=== PATIENT | male | born 1930 | race Caucasian/White ===

== ENCOUNTER 2016-12-21 11:19 | Emergency (ER) | payer OTHER ==
[~2016-12-21] VITALS: Ht 180.3 cm; Wt 101.6 kg
[~2016-12-21 11:19] MED LIST: ALLOPURINOL 30300 M2 PO; ALLOPURINOL PO; APAP/CODEINE ELI5 M1 OR; AVELOX 400 MG400 MG PO; BIAXIN500 MG PO; DOXYCYCLINE 10100 MG PO; FELODIPINE 5 MG5 M1 PO; GLIPIZIDE 10 MG10 MG PO; GLYBURIDE 5 MG T5 M1 PO; HYDREA PO; HYDROCHLOROTH12.5 M1 PO; HYDROCORTISONE3011 TP; JAKAFI5 MG PO; KEFLEX500 MG PO; LASIX 20 MG TAB20 MG PO; LEVAQUIN 500 M500 MG PO; LIPITOR 20 MG T20 M1 PO; LISINOPRIL PO; OSELB75 PO; TOPROL XL25 MG PO; ULTRAM 50MG TAB50 MG PO; ZOCOR PO; ZOLOFT50 M1 PO; ZOLOFT50 MG PO
[2016-12-21 12:52] LABS: HEMATOCRIT 38.9 % (42.0-52.0); HEMOGLOBIN 12.5 gm/dL (14.0-18.0); MCH 31.1 pg (26.0-34.0); MCHC 32.1 g/dL (28.0-37.0); MCV 96.9 fL (80.0-100.0); PLATELET COUNT 149 thou/uL (150-400); RBC 4.01 mil/uL (4.50-6.00); RDW 18.4 % (10.5-14.5); WBC 17.5 thou/uL (4.0-11.0)
[2016-12-21 13:00] LABS: MANUAL DIFF YES
[2016-12-21 13:03] LABS: CALCIUM 8.9 mg/dL (8.5-10.1); POTASSIUM 4.5 mmol/L (3.5-5.1)
[2016-12-21 13:24] LABS: ABSOLUTE NEUTROPHILS 15.2 thou/uL (1.4-8.2); METAMYELOCYTES 1 %; TOTAL CELL COUNT 100
[2016-12-21 13:25] LABS: POIKILOCYTOSIS 1+; POLYCHROMASIA OCCASIONAL
[2016-12-21 13:26] LABS: ANISOCYTOSIS 2+
[2016-12-21] MEDS ORDERED: NORCO 5-325 TA1 EACH PO (13:58)
[2016-12-21] MEDS ORDERED: IBUPROFEN 600600 M1 PO (13:58)
== END 2016-12-21 14:11 | disposition home or self-care (01) ==
LOC: ER 11:19
PROVIDERS: Emergency Medicine
DX: R51 Headache (principal); Z95.1 Presence of aortocoronary bypass graft; E11.22 Type 2 diabetes mellitus with diabetic chronic kidney disease; I13.10 Hypertensive heart and chronic kidney disease without heart failure, with stage 1 through stage 4 chronic kidney disease, or unspecified chronic kidney disease; N18.3 Chronic kidney disease, stage 3 (moderate); Z86.79 Personal history of other diseases of the circulatory system; Z85.46 Personal history of malignant neoplasm of prostate; E78.00 Pure hypercholesterolemia, unspecified; E03.9 Hypothyroidism, unspecified; Z98.890 Other specified postprocedural states; M10.9 Gout, unspecified; Z88.0 Allergy status to penicillin; F10.99 Alcohol use, unspecified with unspecified alcohol-induced disorder

== ENCOUNTER → 2017-01-07 | Outpatient (CLI) | payer OTHER ==
[~2017-01-07] MED LIST changes: +IBUPROFEN 600600 M1 PO; +NORCO 5-325 TA1 EACH PO
== END ==
LOC: ULTRA 03:44
DX: D75.81 Myelofibrosis (principal); R16.1 Splenomegaly, not elsewhere classified

== ENCOUNTER 2017-05-10 17:45 | Inpatient (IN) | payer OTHER ==
[~2017-05-10] VITALS: Ht 180.3 cm; Wt 94.3 kg
--- NOTE | ~2017-05-10 | CNG ---
[facility] [place] [address] CYTO-NONGYN REPORT PROCEDURE Name: TIAN PASTRANA Room #: 457-P [facility] IN M.R.#: [id number] Admission: 05/10/17 Date of : 32 Discharge: 05/13/17 Report #: [id number] Path Case #: [id number] CYTOPATHOLOGY REPORT COLLECTION DATE: 05/12/2017 RECEIVED DATE: 05/13/2017 SUBMITTING PHYS: Dr. Ariella Gambino OTHER PHYS: Dr. Rosales Martinez CLINICAL HISTORY: Low blood sugar. SPECIMEN(S) RECEIVED: A.Abdominal fluid * * * * * * * * * * * * FINAL DIAGNOSIS: A. Abdominal fluid: - No malignant cells identified. Rare mesothelial cells and scattered inflammatory cells. PATHOLOGIST: Crystal Ko M.D. REPORT ELECTRONICALLY SIGNED BY: Crystal Ko M.D. DATE/TIME: 05/14/2017 12:46 * * * * * * * * * * * * GROSS PATHOLOGY: A. Abdominal fluid: The specimen is submitted unfixed, labeled "Tian Pastrana". Received by the Cytology Department is 15 mL of clear opaque fluid. One ThinPrep slide and a formalin fixed cell block were prepared. (clt 05.13.2017) EQUIPMENT STERILIZER(S): [facility]AD [facility] INITIAL CPT CODE(S): A; 13064, 53739 Professional services performed by [facility] at [facility] [address], [place] [address] Technical services performed by [facility] at [address] [place] [address], [address], [place] [address]. [facility] [address] [place] [address], [facility] [[email or web address]] [address] [place], [place] [address] [place] [address] [place] [address] CYTO-NONGYN REPORT PROCEDURE Name: JASONTIANJOSE ROBERTO TAYLOR Room #: 457-P DIS IN M.R.#: [id number] Admission: 05/10/17 Date of : 31 Discharge: 05/13/17 Report #: [id number] Path Case #: [id number] PHONE: [phone] DIRECTOR: Bi Espinoza M.D. * * * END OF REPORT * * *
--- NOTE | ~2017-05-10 | H ---
[facility] [place] [address] HISTORY AND PHYSICAL Name: ALISIA GOMEZ Room #: 457-P [facility] IN M.R.#: [id number] Admission: 05/10/17 Attend Phys: Ariella Conroy MD Discharge: 05/13/17 Date of : 31 Report #: [id number] THIS REPORT FOR: //name// CC: Jesus Manuel Conroy DATE OF SERVICE: 05/10/2017 ATTENDING PHYSICIAN: Ariella Conroy M.D. CHIEF COMPLAINT: Low blood sugar and confusion. HISTORY OF PRESENT ILLNESS: The patient is an 86-year-old gentleman with known history of polycythemia with myelofibrosis. The patient has been having intermittent rectal bleeding as per the son for the last 6 months or so. He did complain of having some bleeding early this week around Thursday, Thursday. The son who is at the bedside also noticed some confusion this morning more than usual. He reports that when he saw his dad 2 weeks ago, he did not have a distended abdomen. He did not complain of any abdominal pain. The patient was initially confused when his blood sugar was running low around 24. After giving him D50 sedation, he was able to be more clear and let me know that he feels fine and he has had abdominal distention for the last couple of weeks. He does complain of having rectal bleeding. He denies of any abdominal pain. He does know that he has been on medicines for his myelofibrosis. 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 PAST SURGICAL HISTORY: Appendectomy, prostate surgery, transaortic valve replacement, right carotid endarterectomy and coronary triple bypass surgery. ALLERGIES: He is known to be ALLERGIC TO PENICILLIN. MEDICATIONS: He was currently on ibuprofen, hydrocodone p.r.n., ruxolitinib 5 mg p.o. daily, glipizide 10 mg daily, Plendil 5 mg daily, metoprolol 25 mg at bedtime, sertraline 50 mg daily, allopurinol 300 mg daily and atorvastatin 20 mg daily. SOCIAL HISTORY: He was a smoker in the past. He drinks alcohol regularly. REVIEW OF SYSTEMS: The patient after was given D50 was able to say that he had [address] [address] HISTORY AND PHYSICAL Name: ALISIA GOMEZ CLAUDIA Room #: 457-P [facility] IN M.R.#: [id number] Admission: 05/10/17 Attend Phys: Ariella Conroy MD Discharge: 05/13/17 Date of : 31 Report #: [id number] abdominal distention and did not complain of any abdominal pain, fever and did not report any nausea and he reports that he did drink alcohol yesterday. PHYSICAL EXAMINATION: GENERAL: Elderly gentleman who was resting in bed. As noted, he was confused initially, but after giving D50 he was able to relate well and was oriented to place and person VITAL SIGNS: He was afebrile with pulse of 98 per minute and regular, respiratory rate of 16, blood pressure was 156/70. HEENT: Skull was atraumatic. There was no pallor, no icterus. Mucosa was moist. NECK: Supple. LUNGS: Clear to auscultation bilaterally with no wheezing or crackles. HEART: First and second, normal. ABDOMEN: There was diffuse distention and the patient had severe splenomegaly, extending beyond the midline. There was hepatomegaly and free fluid was palpated in the abdomen and bowel sounds were normally heard. EXTREMITIES: The patient had trace edema in both lower extremities. RECTAL: As per the ER no external hemorrhoids. No signs of fissures and no masses were seen or palpated. There was brown stool and stools were Hemoccult positive and a small amount of blood was noted on the fingertip. LABORATORY DATA: On admission showed a sodium 143, potassium 4.2, chloride 111, bicarbonate of 25, BUN was 44, creatinine of 1.7, glucose was 56 on admission. Lactic acid was 0.7. AST was 65, ALT of 45, alkaline phosphatase of 177, white cell count was 17.2, hemoglobin 11.2, hematocrit 33.9 and a platelet count of 199. CT abdomen showed markedly enlarged liver. There were gallstones and there was some ascites present in the lower quadrants. ASSESSMENT: 1. Rectal bleeding. 2. Ascites. 3. Hypoglycemia. 4. Alcoholism. 5. Non-insulin dependent diabetes mellitus. 6. Hypertension. 7. Chronic kidney disease, stage 3. 8. History of polycythemia, with converted to myelofibrosis. PLAN: To continue his medications. We will discontinue the atorvastatin, ibuprofen allopurinol for right now. The patient is n.p.o. and have a GI consultation, followup for lower endoscopy. Monitor his hemoglobin. We will also have a consultation with Hematology/Oncology regarding his myelofibrosis and monitor his blood sugars closely. We will discontinue the glipizide for right now and monitor his blood sugars closely. Discussed with the patient and he requested to be a full code and family is aware of it. I discussed overall [facility] [address] [place] [address] HISTORY AND PHYSICAL Name: ALISIA GOMEZ CLAUDIA Room #: 457-P [facility] IN M.R.#: [id number] Admission: 05/10/17 Attend Phys: Ariella Conroy MD Discharge: 05/13/17 Date of : 31 Report #: [id number] prognosis and his medical condition with his son and daughter who were present at the bedside. <ELECTRONICALLY SIGNED> By: Ariella Conroy MD 05/21/17 1412 0926 1023 Ariella Conroy MD /nt
--- NOTE | ~2017-05-10 | HC ---
[facility] [place] [address] CONSULTATION Name: ALISIA GOMEZ Room #: 457-P ADM IN M.R.#: [id number] Admission: 05/10/17 Attend Phys: Ariella Conroy MD Discharge: Date of : 31 Report #: [id number] THIS REPORT FOR: //name// CC: Jesus Manuel Conroy MD REQUESTING PHYSICIAN: Ariella Conroy M.D. 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 Evidently, his female friend had noticed that he was having troubles with confusion and has noticed that his sugars were high and low with lows down to 40 and 28. He was brought by emergency medical services at [place]. He also admits to drinking a lot alcohol, which sounds like 2 very large martinis a day. He also several days ago had noticed bright red blood per rectum, he said about maybe half a cup's worth. This has happened before. He does have a history of gastric varices and was scheduled to see GI over at , I think, tomorrow. At this time, he denies headache, fevers or chills. His eyes are okay now. No nausea or vomiting, no abdominal pain. He has had some leg swelling in the past. He has not had anymore bleeding since several days ago. He ____ that daughter and son are present in the room. 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 The patient's family reports that he has been ____ for about 12 months. They thought it had been beneficial. As far as his spleen going down in size, he has no longer talked with abdominal pain. He does feel like perhaps his abdomen has been slightly more obese than usual lately, having ____, but he is not the best historian. He has not had any skin rash. He has not had any new breathing troubles. No new arm or leg swelling. PAST MEDICAL HISTORY: Notable for the myelofibrosis, also a history of coronary artery disease with, I think, stents and maybe CABG in the past. Also cerebral stroke, hypertension and lipid abnormalities. Note that triple bypass was in 2005. Also the diabetes. Also history of prostate cancer, stage 3 chronic kidney disease, right carotid endarterectomy, hypothyroidism, gout, erectile dysfunction, incontinence, aortic stenosis with a transaortic valve replacement on 03/07/2016. Also appendectomy in the past. MEDICATIONS AT HOME: Had included bupropion and hydrocodone. He had been on ruxolitinib, which has been held. Also glipizide, felodipine, metoprolol, [facility] [address] [place] [address] CONSULTATION Name: ALISIA GOMEZ Room #: 457-P [facility] IN M.R.#: [id number] Admission: 05/10/17 Attend Phys: Ariella Conroy MD Discharge: Date of : 31 Report #: [id number] Zoloft, allopurinol and atorvastatin, all of those have been held at this time except ibuprofen and hydrocodone, we will need to check his medications. CURRENT MEDICATIONS I BELIEVE IN THE HOSPITAL CURRENTLY: Include amlodipine 5, metoprolol 50, Zofran p.r.n., furosemide 20. He also received a dose of levofloxacin and pantoprazole in the ER ____. 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 Stopped smoking some 50 years ago. Alcohol, 2 very large martinis daily, no street drugs. FAMILY HISTORY: Father had an PA at age 67 ____ both about age 4. He has 3 brothers and 4 sisters. There is some diabetes in his family. He has a son and a daughter. 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 ALLERGIES: PENICILLIN. PHYSICAL EXAMINATION: GENERAL: The patient appears his stated age. VITAL SIGNS: Height is 5 feet 11 inches, which is 180.3 cm. Weight is 200 pounds, which is 90.9 kilograms. Blood pressure is 177/78, O2 sat 91%, respirations 18, pulse 71, temperature afebrile at 97.5. HEENT: Face is symmetric. LUNGS: Clear. CARDIOVASCULAR: Heart appears regular rate. ABDOMEN: Quite obese. I believe there is a spleen palpable. EXTREMITIES: Without clubbing or cyanosis. There is some trace edema. LABORATORY: Here shows a BUN of 44, creatinine of 1.7, AST elevated at 65, total bili normal at 0.5, alkaline phosphatase elevated at 177, ALT normal at 45, albumin 3.4 from yesterday evening, ammonia 29, lactic acid 0.7. Coags are ordered and are normal. White count 16.4, hemoglobin 11.2, MCV 96.6, RDW 18.1. Platelet count 208. Differential appears normal. Note that there were 2 metamyelocytes, 1 myelocyte mentioned and 1 NRBC. Urinalysis shows 0-2 red cells. RADIOLOGIC STUDIES: The patient had CT of abdomen and pelvis done on May 10. This was compared to 11/01/2010 as well as 01/24/2016. The CT study shows progressive enlargement of the spleen, ____ the left upper quadrant, and significantly larger than his liver. There is [id number] grade ascites throughout the abdomen. The spleen is increased from 15.5 cm in October 2010 up to 21.5 in January 2016 and 23.4 cm today. Progressive thickening of the spleen measures 11.5. ASSESSMENT AND PLAN: 1. Myelofibrosis and polycythemia vera, question about whether ruxolitinib is [facility] [address] [place] [address] CONSULTATION Name: ALISIA GOMEZ CLAUDIA Room #: 457-P [facility] IN .R.#: [id number] Admission: 05/10/17 Attend Phys: Ariella Conroy MD Discharge: Date of : 31 Report #: [id number] still working with reported increased size of spleen. We will hold ruxolitinib while he is here in the hospital. We talked with Dr. House, and she wishes him to continue it as an outpatient. 2. Gastrointestinal bleeding. Reportedly, the patient has history of varices, which would be related to portal hypertension. GI yet to see the patient. Await GI evaluation. 3. Abdominal ascites. It would again be worrisome for portal hypertension. We will defer to GI whether paracentesis should be obtained. 4. Coronary artery disease and hypertension, currently back on metoprolol. 5. Diabetes. Low sugars are very worrisome, whether the patient may be having severe liver malfunction, though albumin and total bili are normal. We will await coags as another way to ascertain synthetic function of the liver. The patient's family is aware of this concern. 6. Gout. We will probably be holding allopurinol. 7. Hyperlipidemia. Either restart or hold atorvastatin. 8. History of prostate cancer, status unknown. 9. Gouty arthritis, not currently acting up. 10. Alcohol misuse. We will defer to others. <ELECTRONICALLY SIGNED> By: Claudio Mckay MD 05/12/17 0754 1015 [id number] Claudio Mckay MD /nt
--- NOTE | ~2017-05-10 | D ---
[facility] [place] [address] DISCHARGE SUMMARY Name: ALISIA GOMEZ Room #: 457-P [facility] IN M.R.#: [id number] Admission: 05/10/17 Attend Phys: Ariella Conroy MD Discharge: 05/13/17 Date of : 31 Report #: [id number] THIS REPORT FOR: //name// CC: Jesus Manuel Conroy DATE OF SERVICE: 05/13/2017 FINAL DIAGNOSES: 1. Abdominal ascites. 2. Splenomegaly. 3. Diabetes type 2. 4. Chronic kidney disease, stage 4. 5. Polycythemia vera. 6. Myelofibrosis. 7. Liver disease. HOSPITAL COURSE: The patient was admitted with weakness and altered mental status and he was found to be hypoglycemic at the scene. His oral agents were discontinued. He was treated symptomatically. He was also found to have significant splenomegaly due to his known polycythemia vera and myelofibrosis. Abdominal ascites was noted as well. He underwent paracentesis removing [address] Wild saw him and added diuretics. Dr. Mckay saw him and, at this point, kept him off his oral agent for myelofibrosis with recommendation to follow up his coper hand. PHYSICAL EXAMINATION: GENERAL: On the day of discharge, he was awake and alert. VITAL SIGNS: Stable. LUNGS: Clear. HEART: Regular. ABDOMEN: Soft, normoactive bowel sounds. EXTREMITIES: No edema. DISPOSITION: To be discharged to home with diabetic diet, activity as tolerated, stop Glucotrol, add Lasix 20 mg, Aldactone 25 mg and his metoprolol, Norvasc. Follow up with me in 2 days for lab work. <ELECTRONICALLY SIGNED> By: Jesus Manuel Martinez MD 05/19/17 0923 1218 1254 Jesus Manuel Martinez MD /nt
--- NOTE | ~2017-05-10 | EKG ---
[address] [address] ELECTROCARDIOGRAM REPORT Name: ALISIA GOMEZ Room #: 457- ADM IN M.R.#: [id number] Admission: 05/10/17 Attend Phys: Ariella Conroy MD Discharge: Date of : 31 Report #: [id number] THIS REPORT FOR: //name// [facility] ED Test Date: 2017-05-10 Test Time: 17:48:06 Pat Name: ALISIA GOMEZ Department: Room: 457 Gender: M [employer]or: MZOOK : 1930 Requested By: Yousif Krishna Order Number: [id number] MD: Rosendo Padron Measurements Intervals [place] Rate: 70 P: 54 CA: 180 QRS: -13 QRSD: 129 T: 52 QT: 452 QTc: 488 Interpretive Statements Sinus rhythm Probable left atrial enlargement Nonspecific intraventricular conduction delay Inferior infarct, old Compared to ECG 01/12/2016 21:27:57 Ventricular premature complex(es) no longer present early R-wave progression is now present Electronically Signed On 05-12-2017 8:15:25 CDT by Rosendo Padron [email or web address] <ELECTRONICALLY SIGNED> By: Rosendo Padron MD, [facility] 05/12/17 0815 1748 1748 Rosendo Padron MD, [facility] /EPI
--- NOTE | ~2017-05-10 | HC ---
[facility] [place] [address] CONSULTATION Name: ALISIA GOMEZ Room #: 457-P ADM IN M.R.#: [id number] Admission: 05/10/17 Attend Phys: Ariella Conroy MD Discharge: Date of : 31 Report #: [id number] THIS REPORT FOR: //name// CC: Jesus Manuel Conroy DATE OF SERVICE: 05/11/2017 REASON FOR CONSULTATION: The patient is an 86-year-old male with history of cirrhosis of liver and polycythemia vera with progressive splenomegaly and generalized weakness and confusion. HISTORY OF PRESENT ILLNESS: This 86-year-old male has a history of above mentioned problems. Yesterday, his friend noted that he was very weak, somewhat lethargic and confused and brought him to [facility] Emergency Room. When he evaluated by EMS, they found he had a blood sugar of 43, and he was given D10 en route to the hospital. He is currently undergoing management for those problems. He has been on oral agents and blood sugar this morning was 38. From a GI standpoint, he does have a history of liver disease. He has a history of heavy alcohol consumption. He likes to drink gin martinis. He reports only 1 or 2 a day and sometimes 3; however, his daughter who is present in the room reports that he fills a highball glass with his martinis and does not drink out of a typical martini glass. The patient has had gastrointestinal bleeding in the past. It sounds like he has been evaluated at . I am told that he did have some black stools in the past. He also had what sounds like banding of esophageal varices, possibly 6 months ago; however, the date is not entirely clear. It is noted that he was scheduled as an outpatient to have reexamination tomorrow. Obviously, that outpatient procedure is not going to happen at this point. He reports he has not had any recent bloody stools or black stools. He reports that his mentation has been good, although he is forgetful. In recent weeks, he has had progressive distension of his abdomen, that is a new problem as well. He has not had a previous paracentesis. Also, there is no family history of liver disease. He has not been known to have jaundice or viral hepatitis. PAST MEDICAL HISTORY: He had bypass surgery in 2005. He has also been treated for congestive heart failure. In addition, he had aortic stenosis and had a repair done by cardiac catheterization at [facility] [place]. He does have [id number] diabetes mellitus. He has stage 3 chronic kidney disease. He has had prostate cancer treated with seed implants, he did not have surgery. [facility] [address] [place] [address] CONSULTATION Name: ALISIA GOMEZ CLAUDIA Room #: 457-P [facility] IN M.R.#: [id number] Admission: 05/10/17 Attend Phys: Ariella Conroy MD Discharge: Date of : 31 Report #: [id number] He had a stroke in the past. He subsequently had a right carotid endarterectomy. He reports he has recovered well from the stroke. He uses a cane, but that is not necessarily due to hemiparesis. He has elevated cholesterol. He has also had hypothyroidism. 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 He has had gouty arthritis, cataract surgery, erectile dysfunction. He has had some urinary incontinence as well. In addition, he has had an appendectomy and prostate surgery. He has recently had problems with diarrhea. It sounds as if he has had that managed with bile-binding agents. Depression. MEDICATIONS: Listed as ibuprofen, but the patient tells me he takes Aleve as needed for chronic back pain. He also uses Buford from time to time, not on a daily basis. He uses Jakafi 5 mg daily for his polycythemia and myelofibrosis. In addition, he takes Glucotrol 10 mg daily, Plendil 5 mg daily, metoprolol 25 mg daily, sertraline 50 mg at bedtime, allopurinol 300 mg at bedtime and atorvastatin 20 mg at bedtime. ALLERGIES: PENICILLIN. FAMILY HISTORY: No family history of liver disease, jaundice, hepatitis or colon cancer. SOCIAL HISTORY: He smoked in the past including many years ago. Alcohol history as described above. He has never used recreational drugs. GASTROINTESTINAL HISTORY: He has had a colonoscopy in the past, it was in recent years. He does not recall results. REVIEW OF SYSTEMS: GENERAL: He has had increasing abdominal girth in recent weeks and does increase in weight. He has not had any fever or chills. He has had recent generalized weakness. CENTRAL NERVOUS SYSTEM: Previous CVA without recent symptoms of weakness or numbness. ENT: Wears glass and hearing aids. PULMONARY: No cough, pneumonia or tuberculosis. He is a former cigarette smoker. CARDIOVASCULAR: Previous bypass surgery, aortic valve intervention. No recent chest pain or chest tightness. He has been treated for congestive heart failure. GASTROINTESTINAL: No nausea, vomiting or hematemesis. He has had black stools in the past, but not recently. He has had previous colonoscopy. GENITOURINARY: Some urinary incontinence, prostate cancer. MUSCULOSKELETAL: Reports back pain. SKIN: Without rashes. ENDOCRINE: Diabetes and hypothyroidism. [facility] [address] [place] [address] CONSULTATION Name: ALISIA GOMEZ Room #: 457-P [facility] IN M.R.#: [id number] Admission: 05/10/17 Attend Phys: Ariella Conroy MD Discharge: Date of : 31 Report #: [id number] HEMATOLOGIC: Polycythemia, myelofibrosis and prostate cancer. PHYSICAL EXAMINATION: NEUROLOGIC: The patient is a well-developed, well-nourished male who is awake, alert and oriented, in no acute distress. He answers questions appropriately and promptly. VITAL SIGNS: Blood pressure 177/78, pulse of 71. HEENT: Anicteric. Pupils equal and round. Oropharynx is clear. NECK: Supple. CHEST: Clear. HEART: Regular rate and rhythm. S1, S2, soft murmur. ABDOMEN: Protuberant. It is firm, but is not rigid. Bowel sounds are present. He has a very large spleen, which is difficult to feel with the ascites. There is no tenderness in the abdomen. RECTAL: Not done. EXTREMITIES: With trace bilateral pedal edema. NEUROLOGICAL: Oriented to person, place and time. Able to do serial 3s without difficulty. There is no asterixis. LABORATORY DATA: White count is 16.4, hemoglobin was 11.2 yesterday and 11.2 today, MCV of 96.6, platelet count of 208,000. INR of 1.2. Electrolytes unremarkable. BUN 44, which is stable, it was 43 last August. Creatinine has been as high as 2.4 in the past and is currently 1.7. Glucose this morning was 38, bilirubin 0.5, AST of 65, ALT of 45, alk phos 177, lipase 68, ammonia of 29. IMAGING STUDIES: CT was done without contrast that demonstrates a progressive spleen enlargement essentially filling the left upper quadrant. The spleen is larger than the liver. There are diffuse moderate ascites throughout the abdomen. Liver is unremarkable on noncontrast CT. There is evidence steatosis, also plus small gallstones. Pancreas is unremarkable for his age. Seeds are seen in the prostate. He also has a moderate size sliding hiatus hernia. ASSESSMENT: 1. Cirrhosis of liver, likely secondary to long-term alcohol use. 2. Ascites is demonstrated on CT. 3. Portal hypertension with previous banding of esophageal varices. 4. Polycythemia, now with myelofibrosis, progressively worsening. 5. Diabetes, on oral agents with profound hypoglycemia. 6. Hypothyroidism. 7. Previous cerebrovascular accident. 8. Coronary artery disease, status post bypass. 9. History of congestive heart failure. 10. Aortic valve repair via cardiac catheterization. 11. Carotid endarterectomy. 12. Previous cerebrovascular accident. [address] [address] CONSULTATION Name: ALISIA GOMEZ Room #: 457-P [facility] IN M.R.#: [id number] Admission: 05/10/17 Attend Phys: Ariella Conroy MD Discharge: Date of : 31 Report #: [id number] COMMENT: The patient's initial presentation likely result of hypoglycemia with his liver disease. He may have different requirements for his oral agents. In spite of a blood sugar of 38 at this time, his cognition is good. He does not demonstrate overt hepatic encephalopathy. He does have significant ascites, which is a new problem. RECOMMENDATIONS: 1. Paracentesis. 2. Low salt diet, discussed with the patient. 3. EGD for potential banding of varices, possible may be best for him to follow up with his previous physician. However, if needed, could be done during this hospitalization. 4. Consider further evaluation for etiology of his liver disease; however, I suspect these things have been done in the past, although we do not have those records at this time. At this point, I think we can withhold doing any further diagnostic studies for his liver disease. 5. Oncology input with regard to his prognosis regarding his polycythemia and myelofibrosis. 6. The patient will likely benefit from diuretics and potentially combination of furosemide and spironolactone; however, we will withhold at this time until he is more stable. <ELECTRONICALLY SIGNED> By: Saad Dai MD 05/12/17 1601 [id number] Saad Dai MD /nt
[2017-05-10 17:46] VITALS: BP 185/75
[2017-05-10 18:57] LABS: HEMATOCRIT 33.9 % (42.0-52.0); HEMOGLOBIN 11.2 gm/dL (14.0-18.0); MCH 32.2 pg (26.0-34.0); MCV 97.7 fL (80.0-100.0); PLATELET COUNT 199 thou/uL (150-400); RBC 3.47 mil/uL (4.50-6.00); WBC 17.2 thou/uL (4.0-11.0)
[2017-05-10 18:59] LABS: MANUAL DIFF YES
[2017-05-10 19:09] LABS: CALCIUM 8.7 mg/dL (8.5-10.1); CREATININE 1.7 mg/dL (0.7-1.3); POTASSIUM 4.2 mmol/L (3.5-5.1)
[2017-05-10 19:15] LABS: ALBUMIN 3.4 g/dL (3.4-5.0); DIRECT BILIRUBIN 0.1 mg/dL (<0.1-0.3); TOTAL BILIRUBIN 0.5 mg/dL (<0.1-1.0); TOTAL PROTEIN 6.7 g/dL (6.4-8.2)
[2017-05-10 19:20] LABS: TOTAL CELL COUNT 100
[2017-05-10 19:21] LABS: ABSOLUTE NEUTROPHILS 14.4 thou/uL (1.4-8.2); METAMYELOCYTES 2 %; MYELOCYTES 1 %
[2017-05-10 19:22] LABS: ANISOCYTOSIS 1+
[2017-05-10 21:45] VITALS: BP 178/80
[2017-05-11] VITALS (7 sets, daily range): BP systolic 108–177; BP diastolic 51–78
[2017-05-11 00:02] LABS: URINE BILIRUBIN NEGATIVE (Negative); URINE BLOOD NEGATIVE (Negative); URINE COLOR YELLOW; URINE GLUCOSE-RANDOM* NEGATIVE (Negative); URINE KETONES NEGATIVE (Negative); URINE NITRITE NEGATIVE (Negative); URINE PROTEIN (DIPSTICK) 1+ (Negative); URINE SPECIFIC GRAVITY 1.025 (1.003-1.035); URINE UROBILINOGEN 0.2 E.U./dl (0.2-1.0)
[2017-05-11 00:21] LABS: CASTS None Seen /LPF (None Seen); SQUAMOUS None Seen /LPF (0-3); URINE RBC 0-2 Rare /HPF (0-2); URINE WBC 0-5 Rare /HPF (0-5)
[2017-05-11 00:22] LABS: BACTERIA None Seen /HPF (None Seen); CRYSTALS None Seen /LPF (None Seen)
[2017-05-11 08:56] LABS: HEMATOCRIT 34.4 % (42.0-52.0); HEMOGLOBIN 11.2 gm/dL (14.0-18.0); MCH 31.5 pg (26.0-34.0); MCHC 32.6 g/dL (28.0-37.0); MCV 96.6 fL (80.0-100.0); RBC 3.56 mil/uL (4.50-6.00); RDW 18.1 % (10.5-14.5); WBC 16.4 thou/uL (4.0-11.0)
[2017-05-11 09:11] LABS: CREATININE 1.7 mg/dL (0.7-1.3)
[2017-05-11 10:34] LABS: APTT 31.8 Seconds (24.5-32.8); INR 1.2
[2017-05-12] VITALS (7 sets, daily range): BP systolic 115–179; BP diastolic 50–100
[2017-05-12 15:26] LABS: CLARITY SLIGHTLY CLOUDY; COLOR AMBER; TOTAL VOLUME 58 mL
[2017-05-12 15:47] LABS: BF NUCLEATED CELLS 160; BF RBC 1695
[2017-05-12 16:17] LABS: MANUAL DIFF YES
[2017-05-12 16:35] LABS: BF NEUTROPHILS 31
[2017-05-12 16:36] LABS: BF MACROPHAGE 16
[2017-05-13 03:18] VITALS: BP 175/67
[2017-05-13 06:09] LABS: HEMATOCRIT 32.4 % (42.0-52.0); HEMOGLOBIN 10.7 gm/dL (14.0-18.0); MCH 32.2 pg (26.0-34.0); MCHC 32.9 g/dL (28.0-37.0); MCV 97.8 fL (80.0-100.0); RBC 3.31 mil/uL (4.50-6.00); RDW 18.6 % (10.5-14.5); WBC 17.1 thou/uL (4.0-11.0)
[2017-05-13 06:20] LABS: CREATININE 1.9 mg/dL (0.7-1.3); POTASSIUM 4.6 mmol/L (3.5-5.1)
[2017-05-13 08:04] VITALS: BP 161/54
[2017-05-13] MEDS ORDERED: LASIX 20 MG TAB20 MG PO (11:58)
[2017-05-13] MEDS ORDERED: ALDACTONE25 MG PO (11:58)
[2017-05-13 12:23] VITALS: BP 161/54
[2017-05-13 12:30] VITALS: BP 159/65
[2017-05-13 13:13] LABS: BODY FLUID ALBUMIN 0.7 g/dL (()); BODY FLUID AMYLASE 14 U/L (()); BODY FLUID GLUCOSE 169 mg/dL (()); BODY FLUID LDH 111 IU/L (()); BODY FLUID PROTEIN 1.4 g/dL (())
== END 2017-05-13 14:15 | disposition home or self-care (01) | DRG 638 ==
LOC: ER 17:45 → EROBS 20:18 → 4W 20:18 → ENTRNSPT 05-13 14:28 → EDTRNSPTSTS 05-13 14:34
PROVIDERS: Internal Medicine; Internal Medicine Geriatric Medicine; Internal Medicine Hematology & Oncology; Nurse Practitioner
PROC: 0W9G3ZX Drainage of Peritoneal Cavity, Percutaneous Approach, Diagnostic (ICD-10-PCS; principal; 2017-05-12)
DX: E11.649 Type 2 diabetes mellitus with hypoglycemia without coma (principal); K62.5 Hemorrhage of anus and rectum; D75.81 Myelofibrosis; I13.0 Hypertensive heart and chronic kidney disease with heart failure and stage 1 through stage 4 chronic kidney disease, or unspecified chronic kidney disease; K76.6 Portal hypertension; N18.4 Chronic kidney disease, stage 4 (severe); K70.31 Alcoholic cirrhosis of liver with ascites; F10.20 Alcohol dependence, uncomplicated; I50.9 Heart failure, unspecified; D45 Polycythemia vera; K80.20 Calculus of gallbladder without cholecystitis without obstruction; E78.5 Hyperlipidemia, unspecified; I25.10 Atherosclerotic heart disease of native coronary artery without angina pectoris; E11.22 Type 2 diabetes mellitus with diabetic chronic kidney disease; M10.9 Gout, unspecified; E78.00 Pure hypercholesterolemia, unspecified; G47.30 Sleep apnea, unspecified; E03.9 Hypothyroidism, unspecified; Z88.0 Allergy status to penicillin; Z95.1 Presence of aortocoronary bypass graft; Z85.46 Personal history of malignant neoplasm of prostate; Z86.73 Personal history of transient ischemic attack (TIA), and cerebral infarction without residual deficits; Z87.891 Personal history of nicotine dependence; Z98.49 Cataract extraction status, unspecified eye
CPT/HCPCS: 10045

== ENCOUNTER → 2017-09-02 | Outpatient (CLI) | payer OTHER ==
[~2017-09-02] MED LIST changes: +ALDACTONE25 MG PO
== END ==
LOC: ULTRA 06:34
DX: K80.20 Calculus of gallbladder without cholecystitis without obstruction (principal); R16.1 Splenomegaly, not elsewhere classified; D75.81 Myelofibrosis; R16.0 Hepatomegaly, not elsewhere classified; Z86.39 Personal history of other endocrine, nutritional and metabolic disease

== ENCOUNTER → 2017-12-09 | Outpatient (CLI) | payer OTHER | LOC: MRI 11-18 11:13 | DX: G51.0 Bell's palsy (principal); I70.90 Unspecified atherosclerosis; H53.9 Unspecified visual disturbance; Z86.73 Personal history of transient ischemic attack (TIA), and cerebral infarction without residual deficits ==